=== PATIENT | female | born 1990 | race Caucasian/White ===

== ENCOUNTER 2016-07-31 08:07 | Emergency (ER) | payer OTHER ==
[~2016-07-31] VITALS: Ht 165.1 cm; Wt 85.8 kg
[~2016-07-31 08:07] MED LIST: ALBUTEROL SULF8.5 GM IH; BACTRIM,SEPT1 TABLET PO; CLINDAMYCIN HC300 MG PO; EFFEXOR XR75 MG PO; HYDROCODON-ACE1 EAC7 PO; MARLISSA1 EACH PO; NOHOMEMEDS; PROMETHAZINE HC25 M1 PO; TYLENOL EXTRA500 MG PO; ZITHROMAX250 MG PO
[2016-07-31 09:10] VITALS: BP 160/99
[2016-07-31] MEDS ORDERED: CEFDINIR300 MG PO (09:15)
== END 2016-07-31 09:10 | disposition home or self-care (01) ==
LOC: EME 08:07
DX: L03.113 Cellulitis of right upper limb (principal)
CPT/HCPCS: 99281; 99284